=== PATIENT | female | born 1995 | race Hispanic/Latino ===

== ENCOUNTER 2019-01-23 19:59 | Emergency (ER) | payer BC ==
--- NOTE | 2019-01-23 22:53 | ED PDOC ---
Lower Extremity Pain/Injury Time Seen by Provider: 01/23/19 21:05 Chief Complaint (Nursing): Lower Extremity Problem/Injury Chief Complaint (Provider): right calf and ankle pain/swelling History Per: Patient History/Exam Limitations: no limitations Onset/Duration Of Symptoms: Days Current Symptoms Are (Timing): Still Present Pain Scale Rating Of: 4 Additional History Per: Patient Additional Complaint(s): 23 year old female presents to the emergency room c/o right calf and ankle swelling since wednesday with out injury. Patient states she walking about 5 miles in [facility] for work, wednesday she states she felt fine until wednesday morning left woke with right ankle swelling. Patient states she feels the pain radiating to right calf and is concerned she may have a DVT due to family history and she is on oral contraceptives. She was seen at an urgent care today and sent in for US to r/o dvt. She also states she has one episode of dizziness this past week. Denies chest pain, sob, nausea/vomiting, recent travel - Ankle/Foot Description Of Injury: Other (increase walking in flat shoes on ) - Risk Factors DVT Risk Factors: Pos: None Neg: Decreased Mobility, Decreased Activity, Extremity Immobiliztion, Extremi ty Fractured, Extremity Paralyzed, Major Surgery, Hospitalization, Active Cancer, History Of DVT, History Of PE, CHF, Venous Stasis Past Medical History Reviewed: Historical Data, Nursing Documentation, Vital Signs Vital Signs: Last Vital Signs Temp 98.7 F 01/23/19 20:10 Pulse 98 H 01/23/19 20:10 Resp 19 01/23/19 20:10 BP 130/92 H 01/23/19 20:10 Pulse Ox 99 01/23/19 20:10 - Medical History PMH: No Chronic Diseases - Surgical History Surgical History: No Surg Hx - Family History Family History: States: Other Other Family History: DVT - Social History Alcohol: None Drugs: Denies - Allergies Allergies/Adverse Reactions: Allergies Allergy/AdvReac Type Severity Reaction Status Date / Time No Known Allergies Allergy Verified 01/23/19 20:13 Wells Criteria for PE - Wells Criteria for Pulmonary Embolism Clinical Signs and Symptoms of DVT: Yes P.E is #1 Diagnosis, or Equally Likely: No Heart Rate >100: No Immobilization at least 3 days;Surgery previous 4 weeks: No Previous, objectively diagnosed PE or DVT: No Hemoptysis: No Malignancy w/treatment within 6 months, or palliative: No Total Score: 3 Review of Systems ROS Statement: Except As Marked, All Systems Reviewed And Found Negative Musculoskeletal: Positive for: Foot Pain (right ankle swelling ) Physical Exam - Reviewed Nursing Documentation Reviewed: Yes Vital Signs Reviewed: Yes - Physical Exam Appears: Positive for: Well, Non-toxic, No Acute Distress Head Exam: Positive for: ATRAUMATIC, NORMAL INSPECTION, NORMOCEPHALIC Skin: Positive for: Normal Color, Warm, DRY Eye Exam: Positive for: EOMI, Normal appearance, PERRL ENT: Positive for: Normal ENT Inspection Neck: Positive for: Normal, Painless ROM Cardiovascular/Chest: Positive for: Regular Rate, Rhythm Respiratory: Positive for: CNT, Normal Breath Sounds Pulses-Dorsalis Pedis (L): 2+ Pulses-Dorsalis Pedis (R): 2+ Pulses-Radial (L): 2+ Pulses-Radial (R): 2+ Gastrointestinal/Abdominal: Positive for: Normal Exam, Soft Back: Positive for: Normal Inspection Extremity: Positive for: Normal ROM, Tenderness (right calf tenderness), Calf Tenderness, Capillary Refill (<sec cap refill ), Swelling (left inner mallelous ) Neurological/Psych: Positive for: Awake, Alert, Normal Tone - ECG O2 Sat by Pulse Oximetry: 99 Medical Decision Making Medical Decision Making: right lower ext duplex right ankle xray 22:52 right lower ext duplex negative, patient refused to stay for left ankle xray. Patient requested ankle se bandage to be applied, se band applied by advertising writer nuroberto/vasguy exam intact after application. patient encouraged to wear comfortable fitting footwear with support for long walks. clinical findinsgs discussed with patient. she states understanding and agrees with plan. Name: TRENTON GIL Exam Date: Jan 23, 2019 9:45:52 PM EDT Modality Type: SD\US\RI Description: US - LOWER EXTREMITY VENOUS Gender: F Laterality: Right : 94 Referring Physician: Nimco Brower EXAM: US for Deep Venous Thrombosis, right Lower Extremity. CLINICAL HISTORY: Rt calf pain TECHNIQUE: Real-time ultrasound scan of the veins of the right lower extremity with color Doppler flow, spectral waveform analysis and compression. COMPARISON: None provided. FINDINGS: DEEP VEINS: The common femoral, superficial femoral, and popliteal veins are echolucent and compressible. There is normal color Doppler flow throughout. The visualized calf veins appear patent. SUPERFICIAL VEINS: The visualized greater saphenous vein is patent. SOFT TISSUES: No popliteal fossa cyst or other abnormalities. IMPRESSION: No deep venous thrombosis evident on right lower extremity examination. Electronically signed on Jan 23, 2019 10:42:33 PM EDT by: Antoine Carlson M.D., WINDY Certified By ABR & CBC[employer] Fellowship Trained MRI and CT Specialist Disposition - Clinical Impression Clinical Impression: Ankle pain - Patient ED Disposition Is Patient to be Admitted: No Counseled Patient/Family Regarding: Diagnosis - Disposition Disposition: Routine/Home Disposition Time: 22:52 Condition: GOOD Instructions: Ankle Sprain Print Language: CZECH - POA Present On Arrival: None
[2019-01-24] VITALS: BP 117/61; PULSE 76; RESP 18; TEMP 99.2
[2019-01-24 01:25] VITALS: O2SAT 99
--- NOTE | 2019-01-24 12:59 | US ---
Date of service: 01/23/2019 PROCEDURE: Right lower extremity venous duplex Doppler. HISTORY: RIGHT CALF AND ANKLE PAIN COMPARISON: None available. TECHNIQUE: Common femoral, superficial femoral, popliteal and posterior tibial veins were evaluated. Flow was assessed with color Doppler, compressibility, assessment of phasic flow and augmentation response. FINDINGS: COMMON FEMORAL VEIN: Unremarkable. SUPERFICIAL FEMORAL VEIN: Unremarkable. POPLITEAL VEIN: Unremarkable. POSTERIOR TIBIAL VEIN: Unremarkable. OTHER FINDINGS: None. IMPRESSION: No evidence of deep venous thrombosis in the right lower extremity. Concordant findings (preliminary report) provided by ALLY SALINAS.
== END 2019-01-23 22:55 | disposition home or self-care (01) ==
LOC: H.ER 19:59
DX: M25.571 Pain in right ankle and joints of right foot (principal); Z86.718 Personal history of other venous thrombosis and embolism